=== PATIENT | male | born 1965 | race Asian ===

== ENCOUNTER 2017-09-07 12:26 | Day surgery (SDC) | payer OTHER ==
[2017-09-07] MEDS ORDERED: MIDAZOLAM 1 MG/ML 2 ML INJ ×2 (15:24)
[2017-09-07] MEDS ORDERED: FENTAnyl 50 MCG/ML VIAL (15:24)
== END 2017-09-07 16:34 | disposition home or self-care (01) ==
LOC: GIL 12:26
DX: Z12.11 Encounter for screening for malignant neoplasm of colon (principal); D12.5 Benign neoplasm of sigmoid colon; K64.8 Other hemorrhoids
CPT/HCPCS: 45380; 88305